=== PATIENT | male | born 1990 ===

== ENCOUNTER 2017-02-14 15:34 | Inpatient (IN) | payer BC, OTHER ==
[~2017-02-14] VITALS: Ht 180.3 cm; Wt 74.8 kg
[2017-02-14] MEDS ORDERED: CLONIDINE HCL 0.1 MG TABLET PO PRN (16:30)
[2017-02-14] MEDS ORDERED: PROMETHAZINE HCL 25 MG/1 ML VIAL IM PRN (16:30)
[2017-02-14] MEDS ORDERED: MAGNESIUM HYDROXIDE 30 ML LIQUID UDC PO PRN (16:30)
[2017-02-14] MEDS ORDERED: BUPRENORPHINE HCL 2 MG TAB.SUBL SL PRN (16:30)
[2017-02-14] MEDS ORDERED: DICYCLOMINE HCL 20 MG TABLET PO PRN (16:30)
[2017-02-14] MEDS ORDERED: ONDANSETRON ODT 4 MG TAB.RAPDIS SL PRN (16:30)
[2017-02-14] MEDS ORDERED: LORAZEPAM 2 MG/1 ML VIAL IM PRN (16:30)
[2017-02-14] MEDS ORDERED: IBUPROFEN 600 MG TABLET PO PRN (16:30)
[2017-02-14] MEDS ORDERED: HYDROXYZINE PAMOATE 25 MG CAPSULE PO PRN (16:30)
[2017-02-14] MEDS ORDERED: ACETAMINOPHEN 325 MG TABLET PO PRN (16:30)
[2017-02-14] MEDS ORDERED: MAG HYDROX/AL HYDROX/SIMETH 30 ML LIQUID UDC PO PRN (16:30)
[2017-02-14] MEDS ORDERED: DIAZEPAM 10 MG TABLET PO PRN ×2 (16:30)
[2017-02-14] MEDS ORDERED: MIRALAX 17 GM POWD.PACK PO PRN (16:30)
[2017-02-14] MEDS ORDERED: diphenhydrAMINE 50 MG CAPSULE PO PRN (16:30)
[2017-02-14] MEDS ORDERED: LOPERAMIDE HCL 2 MG CAPSULE PO PRN ×2 (16:30)
[2017-02-14] MEDS ORDERED: DIAZEPAM 5 MG TABLET PO PRN (16:30)
[2017-02-14 17:00] VITALS: BP 118/61
[2017-02-14 18:11] LABS: *AMPHETAMINE, URINE NEGATIVE (NEGATIVE); *BARBITURATE, URINE NEGATIVE (NEGATIVE); *CANNABINOID, URINE NEGATIVE (NEGATIVE); *COCCAINE, URINE NEGATIVE (NEGATIVE); *OPIATE, URINE POSITIVE (NEGATIVE); *PHENCYCLIDINE SCREEN,URINE NEGATIVE (NEGATIVE)
--- NOTE | 2017-02-14 18:24 | NUR ---
ADMISSION NOTE Pt is a 26 yr old male, AA&Ox4. Pt is presenting himself to [facility] for Heroin and Klonopin use. Pt is c/o mild anxiety but is able to cope with it. Respirations even and unlabored. Lung sounds are clear. Body check is complete. Skin is intact, warm and dry to touch. No tremors seen or felt. Pt denies any n/v. Pt denies any pain or discomfort. VS are WNL. Pt states, "I do not feel withdraws until 12 hours after use". Pt reports of PMH of Anxiety, Depression, Asthma, and Insomnia. Pt denies any hx of seizures. Pt states of taking Klonopin 2mg QHS for insomnia, but states he does not abuse Klonopin and only takes as prescribed. Pt states of having PCP but can not recall name. Pt is full code, regular diet and NKA. Urine drug screen was complete and positive for opiates. Substance use: 1. Heroin: Pt states of first using Heroin 5 years ago. Pt states he would smoke 1g daily for the past 3 yrs. Last use was on 02/14/17 at 0800, pt smoked 0.3g. 2. Klonopin: Pt states of first taking Klonopin 9 years ago for Insomnia. Pt states he would take Klonopin as prescribed, 2mg PO QHS. Last use was on 02/13/17, pt took 2mg PO at night. Pt was seen and examined by Dr. Anna with new orders to start on 4 day Valium and 5 day Subutex taper on 02/15/17. Pt was educated on medication regime and plan of care. Pt was able to verbalize understanding. Pt was oriented around unit and equipment in room. Pt is on fall precautions. Call light is within reach.
[2017-02-14 18:51] LABS: HEMATOCRIT 48.5 % (40.0-50.0); MEAN CORPUSCULAR HEMOGLOBIN 28.8 uug (27.0-31.0); MEAN CORPUSCULAR HGB CONC 33 g/dL (32.0-37.0); MEAN CORPUSCULAR VOLUME 87.2 fL (82.0-92.0); PLATELET COUNT (AUTO) 225 K/uL (150-450); RED BLOOD CELL COUNT(AUTO) 5.56 MIL/uL (4.70-6.10); RED CELL DISTRIBUTION WIDTH 11.9 % (11.5-14.5); WHITE BLOOD COUNT (AUTO) 9.1 K/uL (4.0-11.2)
[2017-02-14 19:01] LABS: ETHANOL < 3 MG/DL (0-0)
[2017-02-14 19:03] LABS: ALANINE AMINOTRANSFERASE 33 U/L (16-63); ALBUMIN 4.3 g/dL (3.4-5.0); ALKALINE PHOSPHATASE 67 U/L (50-136); ASPARTATE AMINOTRANSFERASE 20 U/L (15-37); BILIRUBIN,TOTAL 0.6 mg/dL (0.2-1.0); CALCIUM 9.2 mg/dL (8.5-10.1); CARBON DIOXIDE 34 mmol/L (21-32); CHLORIDE 105 mmol/L (98-107); CREATININE 0.9 mg/dL (0.6-1.3); GFR 101 mL/min (>60); GLUCOSE 70 mg/dL (74-106); MAGNESIUM 1.8 mg/dL (1.8-2.4); POTASSIUM 4.4 mmol/L (3.5-5.1); SODIUM SERUM 141 mmol/L (136-145); TOTAL PROTEIN, SERUM 7.2 g/dL (6.4-8.2); UREA NITROGEN, BLOOD 11 mg/dL (7-18)
[2017-02-14 19:15] LABS: THYROID STIMULATING HORMONE 0.615 mIU/mL (0.358-3.740)
[2017-02-14 19:19] LABS: HIV-1 p24 ANTIGEN NON REACTIVE (NONREACTIVE); HIV-1/2 ANTIBODY NON REACTIVE (NONREACTIVE)
[2017-02-14 19:30] LABS: BAND % (MANUAL) 3 % (0-10); EOSINOPHILS % (MANUAL) 1 % (0-8); LYMPHOCYTES % (MANUAL) 29 % (20-40); MONOCYTES % (MANUAL) 5 % (2-10); NEUTROPHILS % (MANUAL) 62 % (42-75)
--- NOTE | 2017-02-14 19:30 | NUR ---
START OF SHIFT NOTE: Patient is a 26 y/o male admitted today 02/14/17 for Opiate and Benzo dependence. Patient reported smoking Heroin 1 gram daily for 3 years and takes prescribed Klonopin 2 mg every night for 9 years. Patient with past medical history of Asthma, Anxiety, Depression, & Insomnia. Patient is on a regular diet with no known food and drug allergies. Full Code status. Fall precaution. Skin intact. Patient placed on a 4-day Valium and 5-day Subutex taper. Last CIWA is 3. No PRN medications was given to pt during day shift. Patient is alert & oriented x4. Patient is ambulatory with a steady gait. No shortness of breath noted. Respiration even & unlabored. Abdomen soft & non-distended. Bowel sounds active in all four quadrants. No nausea/vomiting noted. Patient denies pain & discomfort. No complains of sweating of chills. No hallucinations noted. Patient denies SI/HI. Safety precautions are in place. Bed locked in lowest position. Both side rails up. Call light within pt's reach. Will continue to monitor patient.
[2017-02-14 19:31] LABS: PLATELET ESTIMATE ADEQUATE
[2017-02-14 20:00] VITALS: BP 118/67
[2017-02-14] MEDS ORDERED: DIAZEPAM 10 MG TABLET PO SCH (21:00)
[2017-02-14] MEDS: GABAPENTIN 300 MG CAPSULE PO SCH (21:30)
--- NOTE | 2017-02-14 23:39 | NUR ---
PRN Benadryl Patient complains of insomnia & asking for medication for sleep. PRN Benadryl given as ordered. Will continue to monitor patient.
[2017-02-15] VITALS: BP 106/57
--- NOTE | 2017-02-15 01:00 | NUR ---
Prn Reassessment PRN medication effective. Patient asleep in bed and appears comfortable. No shortness of breath noted. Will continue to monitor patient.
--- NOTE | 2017-02-15 04:00 | NUR ---
Vitals/Cows/Ciwa deferred Patient refused vitals at this time. Patient asleep in bed and appears comfortable. No shortness of breath noted. Respiration even & unlabored. Will continue to monitor.
--- NOTE | 2017-02-15 07:16 | NUR ---
END OF SHIFT NOTE: Patient is a 26 y/o male admitted today 02/14/17 for Opiate and Benzo dependence. Patient reported smoking Heroin 1 gram daily for 3 years and takes prescribed Klonopin 2 mg every night for 9 years. Patient with past medical history of Asthma, Anxiety, Depression, & Insomnia. Patient is on a regular diet with no known food and drug allergies. Full Code status. Fall precaution. Skin intact. Patient placed on a 4-day Valium and 5-day Subutex taper. Last COWS 1 CIWA 2 noted. Pt was given PRN Benadryl for sleep and was effective. Pt remained stable and vitals remains WNL. Pt remained compliant with treatment plan Pt slept for a total of 5 hours. Pt consumed 1153 ml of fluids. Voided 3x with no bowel movement. All needs attended & met. Safety precautions are in place. Will endorse pt to day shift nurse.
--- NOTE | 2017-02-15 07:40 | NUR ---
START OF SHIFT NOTE Pt is a 26 yr old male, AA&Ox3. Pt was admitted on 02/14/17 for Opiate/Benzo dependence and is to start on 4 day Ativan and 5 day Subutex taper as ordered. Pt is full code, regular diet and NKA. Pt reports of PMH of Anxiety, Depression, Insomnia, and Asthma. Pt received Benadryl PRN for sleep. medication was effective and slept for 6 hrs. Pt remains in bed resting with respiration even and unlabored. Pt is c/o cold chills, muscle aching and moist eyes. Skin is intact, warm and dry to touch. No tremors seen or felt. Pt denies any n/v. Encouraged increase fluid intake. Safety precautions observed. Call light is within reach. Will continue to monitor.
[2017-02-15 08:00] VITALS: BP 98/37
[2017-02-15] MEDS: DIAZEPAM 10 MG TABLET PO SCH ×4 (09:00→20:44)
[2017-02-15] MEDS: BUPRENORPHINE HCL 2 MG TAB.SUBL SL SCH ×4 (09:00→20:45)
[2017-02-15] MEDS ORDERED: TUBERCULIN,PURIF.PROT.DERIV. 5 TU/0.1 ML TEST ID ONE (09:00)
[2017-02-15] MEDS: MULTIVITAMINS,THERAPEUTIC TABLET PO SCH (09:39)
[2017-02-15] MEDS: GABAPENTIN 300 MG CAPSULE PO SCH ×2 (09:39→20:44)
--- NOTE | 2017-02-15 09:45 | NUR ---
Subutex 4mg SL as schedule was held at 0900 due to parameters. MD was made aware.
[2017-02-15 12:09] VITALS: BP 104/64
[2017-02-15] MEDS: METHOCARBAMOL 750 MG TABLET PO PRN (15:00)
--- NOTE | 2017-02-15 15:00 | NUR ---
PRN MEDICATION GIVEN Pt was c/o muscle aching and spasms 5/10. Facial grimacing is observed. Motrin 600mg PRN and Robaxin 750mg PRN was given. Medication joelle well. Encouraged increase fluid intake.
[2017-02-15 16:00] VITALS: BP 111/60
--- NOTE | 2017-02-15 16:00 | NUR ---
PRN RE-ASSESSMENT Motrin PRN and Robaxin PRN was effective. Pt denies any pain or discomfort. Encouraged increase fluid intake. Will continue to monitor.
--- NOTE | 2017-02-15 19:10 | NUR ---
END OF SHIFT Pt is a 26 yr old male, AA&Ox3. Pt was admitted on 02/14/17 for Opiate/Benzo dependence and is on 4 day Ativan and 5 day Subutex taper as ordered. Pt is full code, regular diet and NKA. Pt reports of PMH of Anxiety, Depression, Insomnia, and Asthma. Pt has been cooperative with medication regime and plan of care. Pt did not attend any group sessions due to w/d. Pt remained in bed throughout the day. Pt received Motrin PRN and Robaxin PRN at 1500 for muscle aching. Medication was effective. Subutex 4mg SL as schedule was held at 0900 due to parameters. MD was made aware Pt remains in bed resting with respiration even and unlabored. No acute distress noted. Skin is intact, warm and moist to touch. No tremors seen or felt. Pt denies any n/v. Encouraged increase fluid intake. Last COWS score was 8, CIWA score was 6 at 1600. Safety precautions observed. Call light is within reach.
--- NOTE | 2017-02-15 19:30 | NUR ---
START OF SHIFT-- Pt is a 26 yr old male, A/Ox3. Pt was admitted on 02/14/17 for Opiate/Benzo dependence and is on 4 day Ativan and 5 day Subutex taper as ordered. Pt is full code, regular diet and NKA. Pt reports of PMH of Anxiety, Depression, Insomnia, and Asthma. Pt has been cooperative with medication regime and plan of care. Pt did not attend any group sessions due to w/d. Pt remained in bed throughout the day.Pt received in bed resting with respiration even and unlabored. No acute distress noted. Skin is intact, warm and moist to touch. Encouraged increase fluid intake. Last COWS score was 8, CIWA score was 6 at 1600. Safety precautions observed. Bed is locked in lowest position,side rails up x 2, Call light is within reach,will continue to monitor. Addendum: 02/16/17 at 0734 by CASTILLO FELTON RN PT IS ON 4 DAY VALIUM TAPER. ATIVAN TAPER CHARTED IN ERROR.
[2017-02-15 20:00] VITALS: BP 116/63
[2017-02-16 04:00] VITALS: BP 95/50
--- NOTE | 2017-02-16 06:52 | NUR ---
END OF SHIFT--- Pt is a 26 yr old male, A/Ox3. Pt was admitted on 02/14/17 for Opiate/Benzo dependence and is on 4 day Ativan and 5 day Subutex taper as ordered. Pt is full code, regular diet and NKA. Pt reports of PMH of Anxiety, Depression, Insomnia, and Asthma. Pt has been cooperative with medication regime and plan of care. Pt did not attend any group sessions due to w/d. Pt remained in bed throughout the day.Pt received in bed resting with respiration even and unlabored. No acute distress noted. Skin is intact, warm and moist to touch. Encouraged increase fluid intake. Last COWS score was 4, CIWA score was 3 at 2000 last night. Pt slept 7 hrs,urine x 0 ,fluid intake was 60 mls. Pt did not eat and dinner last night,stated that he did not any meals.Also refused to eat HS snacks,said he has no appetite.Safety precautions observed. Bed is locked in lowest position,side rails up x 2, Call light is within reach,will continue to monitor. Addendum: 02/16/17 at 0732 by CASTILLO FELTON RN PT IS ON 4 DAY VALIUM TAPER.ATIVAN TAPER CHARTED IN ERROR.
--- NOTE | 2017-02-16 07:15 | NUR ---
Start Of Shift Pt is a 26 year old male admitted on 02/14/17 for Opiate/Benzo dependence. Pt is full code regular diet on fall precautions, denies any food or drug allergies. Pt reports of PMH of Anxiety, Depression, Insomnia, and Asthma. Pt is on a 4 day Valium and 5 day Subutex taper as ordered. Skin is intact Pt did not receive any PRN medications last night. Her last COWS score was 4, and her last CIWA score was 3 taken at 1999. Pt slept a total of 7 hr's last night. Safety precautions observed. Bed is locked in lowest position, side rails up x 2, Call light is within reach, will continue to monitor and provide care. Addendum: 02/16/17 at 1908 by RAGHAV ANTON RN His*
[2017-02-16 08:00] VITALS: BP 99/68
[2017-02-16] MEDS ORDERED: DIAZEPAM 5 MG TABLET PO SCH (08:00)
[2017-02-16] MEDS: MULTIVITAMINS,THERAPEUTIC TABLET PO SCH (09:49)
[2017-02-16] MEDS: GABAPENTIN 300 MG CAPSULE PO SCH ×2 (09:50→21:25)
[2017-02-16] MEDS: BUPRENORPHINE HCL 2 MG TAB.SUBL SL SCH ×3 (09:50→21:27)
[2017-02-16] MEDS: DIAZEPAM 5 MG TABLET PO SCH ×4 (09:50→21:26)
[2017-02-16 12:00] VITALS: BP 100/62
[2017-02-16 14:12] LABS: HCV AB <0.1 s/co ratio (0.0-0.9); HEPATITIS B CORE AB, IgM Negative (Negative); HEPATITIS B SURFACE AG Negative (Negative)
--- NOTE | 2017-02-16 15:40 | NUR ---
PRN MEDICATION Pt c/o abdominal cramps requested something for relief, non-pharmacological techniques interventions provided x3 and were not effective. Bentyl 20mg administered PO, educated pt about s/e of medication and when to contact nurse. all needs met, all safety measures in place, will continue to monitor.
[2017-02-16 16:00] VITALS: BP 117/69
--- NOTE | 2017-02-16 16:40 | NUR ---
PRN REASSESSMENT Medication effective pt reported no longer having any cramps. all needs met all safety measures in place will continue to monitor
--- NOTE | 2017-02-16 19:16 | NUR ---
End Of Shift Pt is a 26 year old male admitted on 02/14/17 for Opiate/Benzo dependence. Pt is full code regular diet on fall precautions, denies any food or drug allergies. Pt reports of PMH of Anxiety, Depression, Insomnia, and Asthma. Pt is on a 4 day Valium and 5 day Subutex taper as ordered. Skin is intact Pt received a PRN Bentyl for stomach cramps medication was effective. His last COWS score was 3, and his last CIWA score was 3 taken at 1600. Pt did not participate in groups and activities d/t fatigue and the first days on the unit. Pt was encouraged to participate in groups and activities. Pt stated that the medications are working well at controlling the withdrawal symptoms, evidenced by low assessment scores during the day ranging from 5-3. Pt ate all of his meals. Pt remains compliant with the treatment plan. Pts vital signs within normal limits, A/Ox4, denies chest pain. Respirations even unlabored, lungs clear upon auscultation abdomen soft and non- distended. Pt denies nausea, vomiting and diarrhea. Pt total fluid intake was 791ml with 2 voids and 1 stool. Safety measures in place, call light within reach. All pertinent information discussed with night court magistrate, endorsement given to night court magistrate nurse.
--- NOTE | 2017-02-16 19:30 | NUR ---
START OF SHIFT--- Pt is a 26 year old male admitted on 02/14/17 for Opiate/Benzo dependence. Pt is full code regular diet on fall precautions, denies any food or drug allergies. Pt reports of PMH of Anxiety, Depression, Insomnia, and Asthma. Pt is on a 4 day Valium and 5 day Subutex taper as ordered. Skin is intact,warm and dry to touch. His last COWS = 3,CIWA =3 at 1600. Pt received in bed,unmotivated to get up,c/o feeling low in energy.Dinner at bedside was not consumed.Pt c/o poor appetite due to nausea. Pt remains compliant with the treatment plan. Pts vital signs within normal limits. Safety measures in place. Bed is locked in lowest position,side rails up x 2, Call light is within reach,will continue to monitor.
[2017-02-16 20:00] VITALS: BP 116/75
--- NOTE | 2017-02-16 20:30 | NUR ---
PRN MED--- PT C/O NAUSEA.PRN ZOFRAN GIVEN ORDERED.WILL MONITOR.
[2017-02-16] MEDS: METHOCARBAMOL 750 MG TABLET PO PRN (21:28)
--- NOTE | 2017-02-16 21:30 | NUR ---
PRN F/U AND MED ADMINISTRATION-- PRN ZOFRAN IS EFFECTIVE.PT OBSERVED EATING SOME DINNER.C/O MUSCLE ACHES AND PAIN.PRN ROBAXIN GIVEN ORDERED.WILL MONITOR.
--- NOTE | 2017-02-16 22:30 | NUR ---
PRN F/U-- PRN MEDS ARE EFFECTIVE.PT OBSERVED LYING IN BED,STATES "FEELING BETTER".WILL CONTINUE TO MONITOR.
[2017-02-17] VITALS: BP 110/69
--- NOTE | 2017-02-17 04:00 | NUR ---
V/S,COWS AND CIWA REFUSED-- PT SLEEPING COMFORTABLY IN HIS BED,NO S/S OF DISTRESS NOTED,BREATHING IS EVEN AND NON LABORED,WILL CONTINUE TO MONITOR.
--- NOTE | 2017-02-17 06:48 | NUR ---
END OF SHIFT--- Pt is a 26 year old male admitted on 02/14/17 for Opiate/Benzo dependence. Pt is full code regular diet on fall precautions, denies any food or drug allergies. Pt reports of PMH of Anxiety, Depression, Insomnia, and Asthma. Pt is on a 4 day Valium and 5 day Subutex taper as ordered. Skin is intact,warm and dry to touch. His last COWS = 2,CIWA =2 at 0400. Pts vital signs within normal limits. Safety measures in place. Pt slept 4 hrs,fluid intake was 796 mls,urine x 1.PRN Zofran and Robaxin given last night.Pt refused to take any med to help him sleep,said "it does not help;even when I am using drugs I barely sleep". Bed is locked in lowest position,side rails up x 2, Call light is within reach,will continue to monitor.
--- NOTE | 2017-02-17 07:15 | NUR ---
Start Of Shift Pt is a 26 year old male admitted on 02/14/17 for Opiate/Benzo dependence. Pt is full code regular diet on fall precautions, denies any food or drug allergies. Pt reports of PMH of Anxiety, Depression, Insomnia, and Asthma. Pt is on a 4 day Valium and 5 day Subutex taper as ordered. Skin is intact Pt did received PRN Zofran and Robaxin which were effective per night cleaner nurse. His last COWS score was 2, and her last CIWA score was 2 taken at 1999. Pt slept a total of 5 hr's last night. Safety precautions observed. Bed is locked in lowest position, side rails up x 2, Call light is within reach, will continue to monitor and provide care.
[2017-02-17 08:00] VITALS: BP 103/62
[2017-02-17] MEDS ORDERED: BUPRENORPHINE HCL 2 MG TAB.SUBL SL SCH (09:00)
[2017-02-17] MEDS: GABAPENTIN 300 MG CAPSULE PO SCH ×2 (10:05→15:11)
[2017-02-17] MEDS: DIAZEPAM 5 MG TABLET PO SCH ×3 (10:05→21:55)
[2017-02-17] MEDS: MULTIVITAMINS,THERAPEUTIC TABLET PO SCH (10:05)
[2017-02-17 12:00] VITALS: BP 112/67
[2017-02-17] MEDS: BUPRENORPHINE HCL 2 MG TAB.SUBL SL SCH ×2 (15:11→21:55)
[2017-02-17 16:00] VITALS: BP 103/63
--- NOTE | 2017-02-17 19:28 | NUR ---
End Of Shift Pt is a 26 year old male admitted on 02/14/17 for Opiate/Benzo dependence. Pt is full code regular diet on fall precautions, denies any food or drug allergies. Pt reports of PMH of Anxiety, Depression, Insomnia, and Asthma. Pt is on a 4 day Valium and 5 day Subutex taper as ordered. Skin is intact Pt received a PRN Bentyl for stomach cramps medication was effective. His last COWS score was 2, and his last CIWA score was 2 taken at 1600. Pt did participated in all groups and activities . Pt was encouraged to participate in groups and activities. Pt stated that the medications are working well at controlling the withdrawal symptoms, evidenced by low assessment scores during the day ranging from 4-2. Pt ate all of his meals. Pt remains compliant with the treatment plan. Pts vital signs within normal limits, A/Ox4, denies chest pain. Respirations even unlabored, lungs clear upon auscultation abdomen soft and non- distended. Pt denies nausea, vomiting and diarrhea. Pt total fluid intake was 1250ml with 2 voids and 1 stool. Safety measures in place, call light within reach. All pertinent information discussed with control engineer, endorsement given to control engineer nurse.
--- NOTE | 2017-02-17 19:45 | NUR ---
Start of Shift Note: Report received from day shift nurse. Pt is a 26yo male admitted on 02/14/17 for opiate and benzodiazepine dependence/withdrawal. Pt reports smoking 1gm heroin daily for 3 years, and taking 2mg Klonopin PO QHS for 9 years. Pt is on day 4 of 4-day Valium taper and 5-day Subutex taper. Last day shift COWS=2, CIWA=2. Day shift nurse reports that pt is compliant with POC and medications as ordered. Pt is currently in bed, resting and watching television. All needs attended and met at this time.
[2017-02-17 20:00] VITALS: BP 103/61
[2017-02-17] MEDS ORDERED: GABAPENTIN 300 MG CAPSULE PO SCH (21:00)
[2017-02-17] MEDS: TRAZODONE 100 MG TABLET PO PRN (21:54)
[2017-02-17] MEDS: DICYCLOMINE HCL 20 MG TABLET PO SCH (21:54)
--- NOTE | 2017-02-17 21:57 | NUR ---
PRN TRAZODONE: PT C/O INABILITY TO SLEEP. ADMINISTERED PRN TRAZODONE ORDERED. WILL CONTINUE TO MONITOR.
--- NOTE | 2017-02-18 | NUR ---
VITALS AND COWS/CIWA REFUSED: PT REFUSES 00:00 VITALS AND COWS/CIWA ASSESSMENTS. PT EDUCATED ON RISKS AND BENEFITS. ALL SAFETY PRECAUTIONS ARE IN PLACE. WILL CONTINUE TO MONITOR.
--- NOTE | 2017-02-18 04:00 | NUR ---
VITALS/COWS/CIWA REFUSED: PT REFUSES 04:00 VITALS AND COWS/CIWA ASSESSMENTS. PT EDUCATED ON RISKS AND BENEFITS. ALL SAFETY PRECAUTIONS ARE IN PLACE. WILL CONTINUE TO MONITOR. Addendum: 02/18/17 at 0505 by REAL DAVIS RN Amended: Links added.
--- NOTE | 2017-02-18 07:30 | NUR ---
End of Shift Note: Pt is a 26yo male admitted to [facility] on 02/14/17 for medically-supervised withdrawal from opiates and benzodiazepines. Pt reports smoking 1gm heroin daily for 3 years and taking 2mg Klonopin PO QHS for 9 years. Pt has completed a 4-day Valium taper and jorge a day 5 of a 5-day Subutex taper. Last COWS=4, CIWA=4 at 20:00. Pt is on a regular diet, reports NKDA/NKFA, and is a full code. VSS during day shift, with PRN administration of Trazodone for insomnia. Total fluid intake this shift: 720 ml; output: urine x2 and BM x0. Pt currently in bed and slept 7 hours this shift. Pt endorsed to day shift nurse.
--- NOTE | 2017-02-18 07:35 | NUR ---
Start Of Shift Pt is a 26 year old male admitted on 02/14/17 for Opiate/Benzo dependence. Pt is full code regular diet on fall precautions, denies any food or drug allergies. Pt reports of PMH of Anxiety, Depression, Insomnia, and Asthma. Pt is on a 4 day Valium and 5 day Subutex taper as ordered currently on his last day of taper, tolerating well. Skin is intact Pt did received PRN Trazodone which was effective per nightclub manager nurse. His last COWS score was 4, and her last CIWA score was 4 taken at 1999. Pt slept a total of 7 hr's last night. Safety precautions observed. Bed is locked in lowest position, side rails up x 2, Call light is within reach, will continue to monitor and provide care.
[2017-02-18 08:00] VITALS: BP 111/63
[2017-02-18] MEDS ORDERED: GABAPENTIN 300 MG CAPSULE PO SCH (09:00)
[2017-02-18] MEDS: DICYCLOMINE HCL 20 MG TABLET PO SCH ×3 (09:49→21:52)
[2017-02-18] MEDS: DIAZEPAM 5 MG TABLET PO SCH ×2 (09:49→21:55)
[2017-02-18] MEDS: MULTIVITAMINS,THERAPEUTIC TABLET PO SCH (09:49)
[2017-02-18] MEDS: BUPRENORPHINE HCL 2 MG TAB.SUBL SL SCH ×3 (09:50→21:54)
[2017-02-18 12:00] VITALS: BP 111/61
[2017-02-18] MEDS: GABAPENTIN 300 MG CAPSULE PO SCH ×2 (15:47→21:52)
[2017-02-18 16:00] VITALS: BP 113/69
--- NOTE | 2017-02-18 19:10 | NUR ---
End Of Shift Pt is a 26 year old male admitted on 02/14/17 for Opiate/Benzo dependence. Pt is full code regular diet on fall precautions, denies any food or drug allergies. Pt reports of PMH of Anxiety, Depression, Insomnia, and Asthma. Pt is on a 4 day Valium and 5 day Subutex taper as ordered currently on his last day. Skin is intact. His last COWS score was 2, and his last CIWA score was 2 taken at 1600. Pt did participated in all groups and activities . Pt was encouraged to participate in groups and activities. Pt stated that the medications are working well at controlling the withdrawal symptoms, evidenced by low assessment scores during the day ranging from 4-2. Pt ate all of his meals. Pt remains compliant with the treatment plan. Pt's vital signs within normal limits, A/Ox4, denies chest pain. Respirations even unlabored, lungs clear upon auscultation abdomen soft and non- distended. Pt denies nausea, vomiting and diarrhea. Pt total fluid intake was 1341ml with 3 voids and 1 stool. Safety measures in place, call light within reach. All pertinent information discussed with assembler 1st shift, endorsement given to assembler 1st shift nurse.
--- NOTE | 2017-02-18 19:45 | NUR ---
Start of Shift Note: Report received from day shift nurse. Pt is a 26yo male admitted on 02/14/17 for opiate and benzodiazepine dependence and withdrawal. Pt reports smoking heroin 1gm/day for 3 years, and taking 2mg Klonopin QHS for 9 years. Pt is to receive last dose of 4-day Valium taper tonight and is on day 4 of a 5-day Subutex taper. Last day shift COWS=2, CIWA=2 and no PRN medications necessary on day shift. Pt is currently in H&I group. Will continue to monitor.
[2017-02-18 20:00] VITALS: BP 104/62
[2017-02-18] MEDS ORDERED: TRAZODONE 100 MG TABLET ONE (22:12)
[2017-02-18] MEDS: TRAZODONE 100 MG TABLET PO PRN (23:35)
--- NOTE | 2017-02-19 | NUR ---
VS/COWS/CIWA Refused: Pt refuses V/S and COWS/CIWA assessments, pt states that he wants to sleep. Pt educated on risks and benefits but continues to refuse. All safety precautions are in place. Will continue to monitor. Addendum: 02/19/17 at 0653 by REAL DAVIS RN Amended: Links added.
--- NOTE | 2017-02-19 04:00 | NUR ---
VS/COWS/CIWA Refused: Pt refuses V/S and COWS/CIWA assessments for sleep. Pt educated on risks and benefits but continues to refuse. All safety precautions are in place. Will continue to monitor. Addendum: 02/19/17 at 0653 by REAL DAVIS RN Amended: Links added.
--- NOTE | 2017-02-19 07:30 | NUR ---
Start of shift note; Received report from night nurse. Patient is a 26 yr old male, AA&Ox3. Pt was admitted on 02/14/17 for Opiate/Benzo dependence and was started on a 4 day Ativan and 5 day Subutex taper as ordered, no adverse reactions noted. Pt is on full code status, regular diet and NKA. Pt reports of PMH of Anxiety, Depression, Insomnia, and Asthma. Pt received Trazodone PRN for sleep. Pt remains in bed resting with respiration even and unlabored. Skin is intact, warm and dry to touch. No tremors seen or felt. Pt denies any n/v. Safety precautions observed. Call light is within reach. Will continue to monitor.
[2017-02-19 08:00] VITALS: BP 108/60
[2017-02-19] MEDS: MULTIVITAMINS,THERAPEUTIC TABLET PO SCH (08:54)
[2017-02-19] MEDS: GABAPENTIN 300 MG CAPSULE PO SCH ×3 (08:54→20:51)
[2017-02-19] MEDS: DICYCLOMINE HCL 20 MG TABLET PO SCH ×3 (08:55→20:51)
[2017-02-19] MEDS ORDERED: BUPRENORPHINE HCL 2 MG TAB.SUBL SL SCH (09:00)
[2017-02-19 12:00] VITALS: BP 118/72
[2017-02-19 16:00] VITALS: BP 124/54
[2017-02-19] MEDS ORDERED: METH-33 PO (18:22)
[2017-02-19] MEDS ORDERED: Ibuprofen PO (18:22)
[2017-02-19] MEDS ORDERED: Gabapentin PO (18:22)
[2017-02-19] MEDS ORDERED: HYDR-3895 PO (18:22)
[2017-02-19] MEDS ORDERED: CLON0.1T14 PO (18:22)
[2017-02-19] MEDS ORDERED: DICY20TA28 PO (18:22)
[2017-02-19] MEDS ORDERED: Trazodone Hcl PO (18:22)
--- NOTE | 2017-02-19 19:01 | NUR ---
End of shift note; Patient is AOX4. Patient is a 26 yr old male, admitted on 02/14/17 for Opiate/Benzo dependence and was started on a 4 day Ativan and 5 day Subutex taper as ordered, no adverse reactions noted. Pt is on full code status, regular diet and NKA. Pt reports of PMH of Anxiety, Depression, Insomnia, and Asthma. No tremors seen or felt. Pt denies any n/v. Patient remained compliant with treatment plan. Medications were effective in reducing withdrawal symptoms. Safety precautions observed. Call light is within reach. Met all needs.
--- NOTE | 2017-02-19 19:50 | NUR ---
Start of Shift Note: Report received from day shift nurse. Pt is a 26M, admitted for Opiate/Benzo dependence. Pt was attending group panel upon start of shift. Pt is AOx4 without s/s of acute distress. Pt is full code, regular diet, and on fall/seizure precautions. Pt noted with NKA. Pt reports medical hx of Asthma, Anxiety, Depression, and Insomnia. Pt has finished Valium and Subutex taper and is scheduled to discharge tomorrow. Bed in lowest position. Side rails up x2. Call light functioning and within reach. All needs attended and met. Will continue to monitor.
[2017-02-19 20:00] VITALS: BP 118/58
[2017-02-19 21:04] LABS: *AMPHETAMINE, URINE NEGATIVE (NEGATIVE); *BARBITURATE, URINE NEGATIVE (NEGATIVE); *CANNABINOID, URINE NEGATIVE (NEGATIVE); *COCCAINE, URINE NEGATIVE (NEGATIVE); *OPIATE, URINE POSITIVE (NEGATIVE); *PHENCYCLIDINE SCREEN,URINE NEGATIVE (NEGATIVE)
[2017-02-19] MEDS: TRAZODONE 100 MG TABLET PO PRN (23:36)
--- NOTE | 2017-02-19 23:36 | NUR ---
PRN Trazodone: Pt reported inability to sleep. Trazodone PRN given as ordered. Will continue to monitor.
[2017-02-20] VITALS: BP 96/67
--- NOTE | 2017-02-20 04:00 | NUR ---
CIWA, COWS, and Vitals refused: Pt in bed with eyes closed. Respirations even and unlabored. RR 14. Attempted to take vitals but pt refused. Pt stated he would like to keep sleeping for the morning. Will continue to monitor.
--- NOTE | 2017-02-20 06:58 | NUR ---
End of Shift Note: Pt is 26M, admitted for Opiate/Benzo dependence on 02/14/17. Pt is AOx4 without s/s of acute distress. Pt is full code, on regular diet, and on fall/seizure precautions. Pt noted with NKA. Pt reports medical hx of Asthma, Anxiety, Depression, and Insomnia. Pt slept for 5 hours. Respirations even and unlabored. Last COWS was 1 and last CIWA was 0 at 0000. Pt has finished Valium and Subutex taper and is scheduled to discharge today. No N/V noted during the shift. Fall and Sz precautions observed. Bed in lowest position. Side rails up x2. Call light functioning and within reach. All further needs attended and met. Will endorse to day shift nurse.
[2017-02-20 08:00] VITALS: BP 112/63
[2017-02-20] MEDS: MULTIVITAMINS,THERAPEUTIC TABLET PO SCH (08:17)
[2017-02-20] MEDS: GABAPENTIN 300 MG CAPSULE PO SCH (08:17)
[2017-02-20] MEDS: DICYCLOMINE HCL 20 MG TABLET PO SCH (08:24)
--- NOTE | 2017-02-20 08:40 | NUR ---
Start of shift note; Received report from night nurse. Patient is a 26 yr old male, AA&Ox3. Pt was admitted on 02/14/17 for Opiate/Benzo dependence and was started on a 4 day Ativan and 5 day Subutex taper as ordered, completed taper without any adverse reactions noted. Pt is on full code status, regular diet and NKA. Pt reports of PMH of Anxiety, Depression, Insomnia, and Asthma. Pt remains in bed resting with respiration even and unlabored. Skin is intact, warm and dry to touch. No tremors seen or felt. Pt denies any n/v. Safety precautions observed. Patient is scheduled for discharge today. Call light is within reach. Will continue to monitor.
--- NOTE | 2017-02-20 10:03 | NUR ---
Discharge note; Patient is AOX4. All patient's belongings, valuables and prescriptions given to patient. Patient completed treatment without any adverse reactions. Patient is medically cleared for discharge. Patient left the facility at exactly 0947 at 02/20/17. Patient left in a stable condition.
== END 2017-02-20 09:47 | disposition home or self-care (01) | DRG 895 ==
LOC: SRC 15:50
PROVIDERS: ADMIT Internal Medicine; ATTEND Internal Medicine
PROC: HZ2ZZZZ Detoxification Services for Substance Abuse Treatment (ICD-10-PCS; principal; 2017-02-14)
PROC: HZ31ZZZ Individual Counseling for Substance Abuse Treatment, Behavioral (ICD-10-PCS; 2017-02-16)
PROC: HZ41ZZZ Group Counseling for Substance Abuse Treatment, Behavioral (ICD-10-PCS; 2017-02-17)
DX: F11.23 Opioid dependence with withdrawal (principal); E87.3 Alkalosis; F13.239 Sedative, hypnotic or anxiolytic dependence with withdrawal, unspecified; F17.210 Nicotine dependence, cigarettes, uncomplicated; E86.0 Dehydration; G47.00 Insomnia, unspecified; F41.9 Anxiety disorder, unspecified; J45.20 Mild intermittent asthma, uncomplicated; F32.9 Major depressive disorder, single episode, unspecified; Z80.3 Family history of malignant neoplasm of breast; Z81.3 Family history of other psychoactive substance abuse and dependence; Z81.8 Family history of other mental and behavioral disorders
CPT/HCPCS: 36415; 70030-TC; 80307; 80361; 83735; 84443; 85025; 86580; 86592; 86705; 86803; 87340; 87806; A4663; G6040-TC; Q0162; Q0163